=== PATIENT | female | born 1985 | race Caucasian/White ===

== ENCOUNTER 2018-07-07 12:44 | Emergency (ER) | payer MEDICAID ==
[~2018-07-07] VITALS: Ht 177.8 cm; Wt 152.4 kg
[2018-07-07 13:04] VITALS: BP 150/89; Ht 177.8 cm; Wt 152.4 kg
== END 2018-07-07 15:09 | disposition home or self-care (01) ==
LOC: ED 12:44
DX: J06.9 Acute upper respiratory infection, unspecified (principal); Z88.0 Allergy status to penicillin
CPT/HCPCS: J7512; J7613; J7644

== ENCOUNTER 2018-09-21 11:39 | Inpatient (IN) | payer OTHER ==
[~2018-09-21] VITALS: Ht 177.8 cm; Wt 154.5 kg
[2018-09-21 11:49] VITALS: Ht 177.8 cm; Wt 154.5 kg
[2018-09-21 12:58] LABS: BASOPHIL % 0.3 % (0-2); PLATELET COUNT 285 x10^3mcL (130-400); RED CELL DISTRIBUTION WIDTH 13.2 % (11.5-14.5)
[2018-09-21 13:13] LABS: CALCIUM 8.6 mg/dL (8.5-10.1); CHLORIDE SERUM 102 mmol/L (98-107); CREATININE SERUM 0.8 mg/dL (0.6-1.0); GFR1 > 60 mL/min; GLUCOSE SERUM 117 mg/dL (74-106); SODIUM SERUM 138 mmol/L (136-145)
[2018-09-21 13:17] LABS: ALBUMIN 3.4 g/dL (3.4-5.0); ALKALINE PHOSPHATASE 105 U/L (46-116); ALT/SGPT 31 U/L (14-59); AST/SGOT 17 U/L (15-37); BILIRUBIN TOTAL 0.5 mg/dL (0.20-1.00); LIPASE 533 IU/L (73-393); TOTAL PROTEIN, SERUM 7.4 g/dL (6.4-8.2)
[2018-09-21 15:52] LABS: MAGNESIUM 1.8 mg/dL (1.8-2.4); PHOSPHOROUS 2.7 mg/dL (2.5-4.9)
[2018-09-21 16:07] VITALS: BP 152/93
[2018-09-21 16:09] LABS: T3 TOTAL 1.01 ng/mL
[2018-09-21 16:33] LABS: FREE T4 0.9 ng/dL (0.76-1.46); T4(THYROXINE) 5.8 ug/dL (4.7-13.3)
[2018-09-21 20:39] VITALS: BP 126/78
[2018-09-22 05:18] VITALS: BP 135/69
[2018-09-22 06:20] LABS: BASOPHIL % 0.3 % (0-2); PLATELET COUNT 220 x10^3mcL (130-400)
[2018-09-22 06:32] LABS: AMYLASE 39 U/L (25-115); CALCIUM 7.5 mg/dL (8.5-10.1); CARBON DIOXIDE 25.5 mmol/L (21-32); CHLORIDE SERUM 103 mmol/L (98-107); CREATININE SERUM 0.8 mg/dL (0.6-1.0); GFR1 > 60 mL/min; GLUCOSE SERUM 94 mg/dL (74-106); LIPASE 87 IU/L (73-393); MAGNESIUM 1.6 mg/dL (1.8-2.4); PHOSPHOROUS 2.5 mg/dL (2.5-4.9); POTASSIUM SERUM 3.3 mmol/L (3.5-5.1); SODIUM SERUM 138 mmol/L (136-145)
[2018-09-22 08:01] LABS: AMPHETAMINE QUAL UR NONE DETECTED (See below)
[2018-09-22 08:42] LABS: microscopic required? YES
[2018-09-22 08:43] LABS: urine erythrocyte 2+ (NEGATIVE)
[2018-09-22 09:35] LABS: RED CELL DISTRIBUTION WIDTH 13.2 % (11.5-14.5)
[2018-09-22 09:53] VITALS: BP 125/72
[2018-09-22 13:41] VITALS: BP 125/72
[2018-09-22 14:14] VITALS: BP 125/72
== END 2018-09-22 14:45 | disposition home or self-care (01) | DRG 282 ==
LOC: ED 11:39 → MU 14:33
PROVIDERS: Emergency Medicine; Internal Medicine
DX: K85.10 Biliary acute pancreatitis without necrosis or infection (principal); E66.01 Morbid (severe) obesity due to excess calories; Z68.43 Body mass index [BMI] 50.0-59.9, adult; K21.9 Gastro-esophageal reflux disease without esophagitis; K80.20 Calculus of gallbladder without cholecystitis without obstruction; F17.210 Nicotine dependence, cigarettes, uncomplicated; Z71.3 Dietary counseling and surveillance; Z88.0 Allergy status to penicillin
CPT/HCPCS: 83880; 84439; J1885; J2270; J2405; J3490; J7030; Q0092